=== PATIENT | female | born 1960 | race Caucasian/White ===

== ENCOUNTER 2019-12-22 08:42 | Outpatient (CLI) | payer BC, SELFPAY ==
--- NOTE | 2019-12-22 09:30 | NEURO_ITS ---
TEST: ELECTROENCEPHALOGRAM DIAGNOSIS: ABSENCE EPILEPTIC SYNDROME PATIENT NUMBER: [id number] EEG NUMBER: [id number] RECORDING DATE: 12/22/19 CLINICAL HISTORY: Patient reports she has episodes of fogginess and sometimes loses control of bladder. Denies any loss of consciousness. CONDITION OF RECORDING: Awake and drowsy EEG DESCRIPTION: Basic resting occipital frequency consists of moderate amount of fairly well organized low to medium voltage 8-9hz alpha mixed with low voltage 15-18hz beta. During drowsiness low voltage beta activity is seen diffusely mixed with waxing and waning posterior alpha rhythms. Photic stimulation produced normal drive. Nonparoxysmal. Nonfocal. Nonlateralizing. IMPRESSION: No significant abnormalities noted. [facility]
== END 2019-12-22 08:43 | disposition home or self-care (01) ==
PROVIDERS: PCP Family Medicine; Visit Provider Family Medicine
DX: G40.A09 Absence epileptic syndrome, not intractable, without status epilepticus (principal)
CPT/HCPCS: 95816

== ENCOUNTER 2020-07-04 14:59 | Outpatient (CLI) | payer BC, SELFPAY ==
--- NOTE | ~2020-07-04 | CT_ITS ---
EXAMINATION: CT brain wo/w con EXAM DATE: 07/04/2020 15:47 INDICATION: Seizure, cervical disc disorder. TECHNIQUE: Spiral CT of the head was performed without contrast. Axial, coronal and sagittal images were reviewed. Patient was then injected with 100 cc Omnipaque 350 intravenous contrast and reimaged. Postcontrast axial, coronal, sagittal reformatted images reviewed. The dose-length product (DLP) fo r this examination was 605.33 mGy-cm. The exposure was tailored according to patient size, and itera tive reconstruction (ASIR) was used as additional dose reduction technique. There is no prior study for comparison. FINDINGS: There is no acute intraparenchymal hemorrhage. No evidence of intraparenchymal brain mass lesion. No evidence of acute infarction. There is no mass effect or midline shift. The ventricles are normal in size. There are no extra-axial collections. There are no acute calvarial fractures. T he orbits are unremarkable. Soft tissue is unremarkable. Mild right ethmoid mucoperiosteal thickeni ng. There are no areas of abnormal enhancement on the post contrast images. IMPRESSION: 1. Unremarkable head CT examination. Reviewed, dictated and finalized at location A.
--- NOTE | ~2020-07-04 | CT_ITS ---
EXAMINATION: CT cervical spine w con EXAM DATE: 07/04/2020 15:48 INDICATION: Cervical disc disorder. TECHNIQUE: Spiral CT of the cervical spine was performed following intravenous injection of 100 mL in travenous Omnipaque 350 solution. Axial images were reviewed. Coronal and sagittal reformatted imag es were also reviewed. The dose-length product (DLP) for this examination was 200.09 mGy-cm. The exp osure was tailored according to patient size (auto mA exposure control), and iterative reconstruction (ASIR) was used as additional dose reduction technique. There is no prior study for comparison. FINDINGS: Moderate to severe upper thoracic dextroscoliosis, partially imaged Britt rods and sco ut image. Mild levocurvature of the cervical spine. No cervical epidural abscess or discitis. There i s mild to moderate disc disease from C4 through C7. There is 2 mm anterolisthesis C7 on T1. The verte bral bodies are otherwise aligned. Paraspinal soft tissue is unremarkable. There are no areas of abno rmal enhancement on the post contrast images. Level by level evaluation: C2-C3: Disc does not extend beyond the endplate margin. Uncovertebral joint arthropathy: Mild left. Facet joint arthropathy: Mild bilateral. Neural foraminal stenosis: No stenosis. Central canal stenosis: No stenosis. C3-C4: Disc does not extend beyond the endplate margin. Uncovertebral joint arthropathy: None. Facet joint arthropathy: Mild. Neural foraminal stenosis: No stenosis. Central canal stenosis: No stenosis. C4-C5: Disc does not extend beyond the endplate margin. Uncovertebral joint arthropathy: Mild bilateral. Facet joint arthropathy: Moderate right, mild left. Neural foraminal stenosis: No stenosis. Central canal stenosis: No stenosis. C5-C6: There is a mild diffuse disc bulge. Uncovertebral joint arthropathy: Mild to moderate bilateral. Facet joint arthropathy: Mild to moderate bilateral. Neural foraminal stenosis: Mild left. Central canal stenosis: No stenosis. C6-C7: There is a mild diffuse disc bulge. Uncovertebral joint arthropathy: Mild to moderate right, mild left. Facet joint arthropathy: None. Neural foraminal stenosis: No stenosis. Central canal stenosis: No stenosis. C7-T1: Disc does not extend beyond the endplate margin. Uncovertebral joint arthropathy: None. Facet joint arthropathy: Mild bilateral. Neural foraminal stenosis: No stenosis. Central canal stenosis: No stenosis. IMPRESSION: 1. Mild to moderate cervical spondylosis as detailed above. Reviewed, dictated and finalized at location A.
[2020-07-04 15:32] LABS: Estimated Glomerular Filt Rate > 60
== END 2020-07-04 15:00 | disposition home or self-care (01) ==
PROVIDERS: PCP Family Medicine; Visit Provider Psychiatry & Neurology Neurology
DX: M50.00 Cervical disc disorder with myelopathy, unspecified cervical region (principal); M47.812 Spondylosis without myelopathy or radiculopathy, cervical region; R56.9 Unspecified convulsions
CPT/HCPCS: 70470; 72126; Q9967

== ENCOUNTER → 2022-12-24 14:51 | Outpatient (CLI) | payer MEDICARE, OTHER, SELFPAY ==
--- NOTE | ~2022-12-24 | XR_ITS ---
XR hip RT min 2V 12/24/2022 15:06 Indication: Right hip pain Procedure: 2 views right hip Comparison: No prior studies for comparison. Findings: There is anatomic alignment. There are surgical changes in the right inguinal region. No fr acture, subluxation or dislocation. No significant joint space narrowing. Osteopenia. Impression: 1: No acute bone or joint abnormality. Reviewed, dictated and finalized at location L. C VIDEO DIRECTOR Impression: 1: No acute bone or joint abnormality.
== END ==
PROVIDERS: PCP Emergency Medicine; Visit Provider Emergency Medicine
DX: M25.551 Pain in right hip (principal)
CPT/HCPCS: 73502

== ENCOUNTER 2024-07-29 18:06 | Emergency (ER) | payer MEDICARE, OTHER, SELFPAY ==
--- NOTE | 2024-07-29 18:18 | ED.URI ---
HPI - URI/Sore Throat General Chief Complaint: Upper Respiratory Infection Stated Complaint: home test +Covid Time Seen by Provider: 07/29/24 18:18 Source: patient, RN notes reviewed and old records reviewed Mode of arrival: ambulatory Limitations: no limitations History of Present Illness HPI Narrative: 64-year-old female to [facility] for complaint of body aches and chills since yesterday. Patient reports taking positive COVID test At home. Patient reports pulmonary history and states that the last time she had COVID that her sports trainer had her take Lagevrio. Patient anxious and concerned given her history and positive COVID test, requesting Lagevrio. Patient resting anxiously in exam room in no acute distress. Respirations even and nonlabored. Related Data Home Medications Medication Instructions Recorded Confirmed apixaban 5 mg tablet (Eliquis) 5 mg PO BID 03/23/24 07/29/24 calcium 600 mg (as carbonate)-vit 1 tablet PO DAILY 03/23/24 07/29/24 D3 20 mcg (800 unit) chewable tablet (Caltrate plus D) clobazam 10 mg tablet 5 mg PO BID 03/23/24 07/29/24 docusate sodium 100 mg tablet 100 mg PO DAILY 03/23/24 07/29/24 fluticasone propionate 50 2 spray intranasal DAILY 03/23/24 07/29/24 mcg/actuation nasal spray,suspension guaifenesin 600 mg tablet, 600 mg PO DAILY 03/23/24 07/29/24 extended release 12 hr loratadine 10 mg tablet 10 mg PO DAILY 03/23/24 07/29/24 metoprolol succinate 25 mg capsule 25 mg PO DAILY 03/23/24 07/29/24 sprinkle, ext. release 24 hr omega-3 fatty acids 500 mg capsule 1,000 mg PO DAILY 03/23/24 07/29/24 pantoprazole 40 mg tablet,delayed 40 mg PO QAM 03/23/24 07/29/24 release Allergies Allergy/AdvReac Type Severity Reaction Status Date / Time Penicillins Allergy Unknown Unknown Verified 07/29/24 18:22 succinylcholine Allergy Other Verified 07/29/24 18:22 [From Anectine] metoclopramide [From Reglan] AdvReac Intermediate Anxiety Verified 07/29/24 18:22 Review of Systems Review of Systems: All systems reviewed & are unremarkable except as noted in HPI and below Constitutional: Constitutional: Reports as per HPI, Reports body ache(s) and Reports chills Eyes: Eyes: Reports no additional eye complaints ENT: Reports system reviewed and no additional complaints, except as documented Cardiovascular: Cardiovascular: Reports no additional cardiovascular complaints, Denies chest pain and Denies dyspnea Respiratory: Respiratory: Reports no additional respiratory complaints, Denies cough and Denies dyspnea Musculoskeletal: Musculoskeletal: Reports no additional musculoskeletal complaints Neurologic: Reports system reviewed and no additional complaints, except as documented Psychiatric: Psychiatric: Reports no additional psychiatric complaints PMFSH Surgical History Surgical History H/O right breast implant H/O spinal fusion H/O: section H/O: hysterectomy Social History Social History Social History: Caffeine-coffee/soda once a day Smoking status: Former smoker Alcohol intake: never Substance use: never Lack of Transportation: YES Lack of Food: Never True Current Housing: I Have Housing Concerned About Future Housing: No Difficulty Paying Gas/Electric Bills: No Difficulty Paying for Meds: No Currently Unemployed: No Education: Associate Degree Difficulty w/ Childcare or Family Care: No Comments At the time of my signature, I reviewed and agree with the nursing past medical, surgical, social, and family history. There is no relevant family history pertinent to the patient complaint. Exam Const: General: cooperative, comfortable, no acute distress, alert, anxious and well nourished Nutritional Appearance: well nourished Orientation/consciousness: patient oriented x3 Limitations: no limitations HENMT: Head
[2024-07-29 18:27] VITALS: BP 139/76; PULSE 83; RESP 16; TEMP 38; O2SAT 99
== END 2024-07-29 18:56 | disposition home or self-care (01) ==
PROVIDERS: Emergency Provider Nurse Practitioner Family; PCP Emergency Medicine
DX: U07.1 COVID-19 (principal); Z79.01 Long term (current) use of anticoagulants; Z87.891 Personal history of nicotine dependence
CPT/HCPCS: 99213; G0463